=== PATIENT | male | born 1990 | race Caucasian/White ===

== ENCOUNTER 2022-04-19 14:19 | Emergency (ER) | payer OTHER ==
[~2022-04-19] VITALS: Ht 170.2 cm; Wt 75.0 kg
[2022-04-19 15:30] VITALS: BP 127/86
== END 2022-04-19 15:31 ==
LOC: ER 14:29
DX: K13.70 Unspecified lesions of oral mucosa (principal); F15.10 Other stimulant abuse, uncomplicated; G50.1 Atypical facial pain; M79.606 Pain in leg, unspecified; Z71.51 Drug abuse counseling and surveillance of drug abuser; R03.0 Elevated blood-pressure reading, without diagnosis of hypertension
CPT/HCPCS: 99283